=== PATIENT | male | born 1960 | race Caucasian/White ===

== ENCOUNTER 2017-03-05 15:17 | Emergency (ER) | payer MEDICARE ==
[2017-03-05 15:56] LABS: BASOPHILS 1.1 % (0-2); EOSINOPHILS 3.2 % (0-7); HEMATOCRIT 42.2 % (42.0-54.0); HEMOGLOBIN 14.6 g/dL (13.5-17.5); IMMATURE GRANULOCYTES 0.2 % (0-5); LYMPHOCYTES 22.5 % (15-50); MCH 31.7 pg (26.0-34.0); MCHC 34.6 g/dL (31.0-37.0); MCV 91.7 fL (80.0-100.0); MEAN PLATELET VOLUME 10.8 fL (7.4-10.4); MONOCYTES 19.3 % (2-11); NEUTROPHILS 53.7 % (40-80); PLATELET COUNT 167 10x3/uL (130-400); RDW 12.6 % (11.5-14.5); WBC 5.6 10x3/uL (4.8-10.8)
[2017-03-05 16:07] LABS: ALBUMIN 3.6 g/dL (3.4-5.0); ALKALINE PHOSPHATASE 107 U/L (46-116); ALT (SGPT) 169 U/L (10-68); BILIRUBIN - TOTAL 0.56 mg/dL (0.2-1.3); CALC OSMOLALITY 266 mosm/kg (275-300); CALCIUM 9.4 mg/dL (8.5-10.1); CARBON DIOXIDE 23.6 mmol/L (21.0-32.0); CHLORIDE - SERUM 97 mmol/L (98-107); GLUCOSE 208 mg/dL (74-106); POTASSIUM - SERUM 4.3 mmol/L (3.5-5.1); SODIUM 131 mmol/L (136-145); UREA NITROGEN 6 mg/dL (7-18); eGFR NON AFRICAN AMERICAN 82 mL/min (90-120)
== END 2017-03-05 16:58 | disposition home or self-care (01) ==
LOC: D.ER 15:17
PROVIDERS: Family Medicine
DX: J44.9 Chronic obstructive pulmonary disease, unspecified (principal); J20.9 Acute bronchitis, unspecified; I10 Essential (primary) hypertension; R00.0 Tachycardia, unspecified

== ENCOUNTER → 2017-05-25 15:31 | Outpatient (CLI) | payer MEDICARE ==
[2017-05-25 19:26] LABS: ALBUMIN 3.4 g/dL (3.4-5.0); BILIRUBIN - DIRECT 0.11 mg/dL (0.00-0.30); BILIRUBIN - INDIRECT 0.41 mg/dL (0.00-1.00); BILIRUBIN - TOTAL 0.52 mg/dL (0.2-1.3); PROTEIN - SERUM 7.1 g/dL (6.4-8.2)
[2017-06-02 09:19] LABS: HCVGENO - HEP C QUANT 8780000 IU/mL (()); HCVGENO - LOG 10 6.943 (())
== END | disposition home or self-care (01) ==
LOC: D.LABREF 15:31
PROVIDERS: Internal Medicine Gastroenterology
DX: Z12.11 Encounter for screening for malignant neoplasm of colon (principal)

== ENCOUNTER 2018-01-22 16:44 | Emergency (ER) | payer MEDICARE ==
[~2018-01-22] VITALS: Ht 172.7 cm; Wt 81.8 kg
[2018-01-22 16:47] VITALS: BP 147/100; Ht 172.7 cm; Wt 81.8 kg
[2018-01-22] MEDS ORDERED: EPCLUSA 400 MG1 EACH PO (16:49)
[2018-01-22] MEDS ORDERED: SEROQUEL XR400 M1 PO (16:56)
[2018-01-22] MEDS ORDERED: NEXIUM40 MG PO (16:57)
[2018-01-22] MEDS ORDERED: ALBUTEROL1.25 MG/3 INH (16:57)
[2018-01-22] MEDS ORDERED: IPRAT-ALBUT 0.5-3 ML UPD (16:57)
[2018-01-22 18:05] LABS: BASOPHILS 0.8 % (0-2); EOSINOPHILS 4.8 % (0-7); HEMATOCRIT 42.7 % (42.0-54.0); IMMATURE GRANULOCYTES 0.3 % (0-5); LYMPHOCYTES 33.3 % (15-50); MCH 31.8 pg (26.0-34.0); MCHC 35.1 g/dL (31.0-37.0); MCV 90.7 fL (80.0-100.0); MEAN PLATELET VOLUME 10.3 fL (7.4-10.4); NEUTROPHILS 49.8 % (40-80); PLATELET COUNT 185 10x3/uL (130-400); RBC 4.71 10x6/uL (4.20-6.10); RDW 12.4 % (11.5-14.5)
[2018-01-22 18:22] LABS: ALBUMIN 3.8 g/dL (3.4-5.0); ALKALINE PHOSPHATASE 79 U/L (46-116); ALT (SGPT) 86 U/L (10-68); AMYLASE - SERUM 54 U/L (25-115); BILIRUBIN - TOTAL 0.24 mg/dL (0.2-1.3); CALC OSMOLALITY 269 mosm/kg (275-300); CALCIUM 9.7 mg/dL (8.5-10.1); CARBON DIOXIDE 29.2 mmol/L (21.0-32.0); CHLORIDE - SERUM 99 mmol/L (98-107); CREATININE - SERUM 0.9 mg/dL (0.6-1.3); GLUCOSE 123 mg/dL (74-106); LIPASE 185 U/L (73-393); POTASSIUM - SERUM 4.3 mmol/L (3.5-5.1); PROTEIN - SERUM 8.3 g/dL (6.4-8.2); SODIUM 135 mmol/L (136-145); UREA NITROGEN 10 mg/dL (7-18); eGFR NON AFRICAN AMERICAN > 90 mL/min (90-120)
[2018-01-22] MEDS ORDERED: PEPCID AC20 MG PO (18:48)
[2018-01-22 18:51] LABS: APPEARANCE CLEAR (CLEAR); BILIRUBIN NEGATIVE (NEGATIVE); COLOR YELLOW (YELLOW); GLUCOSE NEGATIVE (NEGATIVE); KETONE NEGATIVE (NEGATIVE); NITRITE NEGATIVE (NEGATIVE); PROTEIN NEGATIVE (NEGATIVE); UROBILINOGEN NORMAL (NORMAL)
== END 2018-01-22 19:05 | disposition home or self-care (01) ==
LOC: D.ER 16:44
PROVIDERS: Family Medicine
DX: K21.9 Gastro-esophageal reflux disease without esophagitis (principal); B19.20 Unspecified viral hepatitis C without hepatic coma; F17.200 Nicotine dependence, unspecified, uncomplicated

== ENCOUNTER 2018-04-14 17:08 | Emergency (ER) | payer MEDICARE ==
[~2018-04-14] VITALS: Ht 172.7 cm; Wt 88.2 kg
[~2018-04-14 17:08] MED LIST: ALBUTEROL1.25 MG/3 INH; EPCLUSA 400 MG1 EACH PO; IPRAT-ALBUT 0.5-3 ML UPD; NEXIUM40 MG PO; PEPCID AC20 MG PO; SEROQUEL XR400 M1 PO
[2018-04-14 17:11] VITALS: Ht 172.7 cm; Wt 88.2 kg
[2018-04-14] MEDS ORDERED: AMOXICILLIN875 MG PO (17:13)
[2018-04-14 17:38] LABS: BASOPHILS 0.8 % (0-2); EOSINOPHILS 1.1 % (0-7); HEMATOCRIT 37.9 % (42.0-54.0); HEMOGLOBIN 13.6 g/dL (13.5-17.5); IMMATURE GRANULOCYTES 0.2 % (0-5); LYMPHOCYTES 23.8 % (15-50); MCH 31.3 pg (26.0-34.0); MCHC 35.9 g/dL (31.0-37.0); MCV 87.3 fL (80.0-100.0); MEAN PLATELET VOLUME 9.6 fL (7.4-10.4); MONOCYTES 17.4 % (2-11); NEUTROPHILS 56.7 % (40-80); PLATELET COUNT 190 10x3/uL (130-400); RBC 4.34 10x6/uL (4.20-6.10); RDW 12.1 % (11.5-14.5); WBC 8.7 10x3/uL (4.8-10.8)
[2018-04-14 17:48] LABS: APTT 28.6 SECONDS (22.8-39.4); INR 1.03 (0.85-1.17)
[2018-04-14 17:53] LABS: ALBUMIN 3.8 g/dL (3.4-5.0); ALKALINE PHOSPHATASE 66 U/L (46-116); ALT (SGPT) 48 U/L (10-68); CALC OSMOLALITY 252 mosm/kg (275-300); CALCIUM 8.7 mg/dL (8.5-10.1); CARBON DIOXIDE 20.3 mmol/L (21.0-32.0); CHLORIDE - SERUM 92 mmol/L (98-107); CREATININE - SERUM 0.9 mg/dL (0.6-1.3); GLUCOSE 128 mg/dL (74-106); POTASSIUM - SERUM 4.6 mmol/L (3.5-5.1); SODIUM 125 mmol/L (136-145); UREA NITROGEN 9 mg/dL (7-18); eGFR NON AFRICAN AMERICAN > 90 mL/min (90-120)
[2018-04-14 18:04] LABS: CREATINE KINASE 257 UL (21-232); PRO BNP 291 pg/mL (0-125)
[2018-04-14 18:15] LABS: TROPONIN-I < 0.017 ng/mL (0.000-0.060)
[2018-04-14] MEDS ORDERED: KEFLEX500 MG PO (19:00)
[2018-04-14 20:05] VITALS: BP 161/83
== END 2018-04-14 20:07 | disposition home or self-care (01) ==
LOC: D.ER 17:08
PROVIDERS: Family Medicine
DX: F41.9 Anxiety disorder, unspecified (principal); J06.9 Acute upper respiratory infection, unspecified; R05 Cough; J44.9 Chronic obstructive pulmonary disease, unspecified; F17.200 Nicotine dependence, unspecified, uncomplicated

== ENCOUNTER 2019-02-01 15:31 | Emergency (ER) | payer MEDICARE ==
[~2019-02-01] VITALS: Ht 172.7 cm; Wt 88.6 kg
[~2019-02-01 15:31] MED LIST changes: +AMOXICILLIN875 MG PO; +KEFLEX500 MG PO
[2019-02-01 15:39] VITALS: Ht 172.7 cm; Wt 88.6 kg
[2019-02-01 16:49] LABS: BASOPHILS 0.9 % (0-2); EOSINOPHILS 5.1 % (0-7); HEMATOCRIT 39.2 % (42.0-54.0); HEMOGLOBIN 13.3 g/dL (13.5-17.5); IMMATURE GRANULOCYTES 0.2 % (0-5); LYMPHOCYTES 26.2 % (15-50); MCH 30.9 pg (26.0-34.0); MCHC 33.9 g/dL (31.0-37.0); MCV 91.2 fL (80.0-100.0); MEAN PLATELET VOLUME 9.8 fL (7.4-10.4); NEUTROPHILS 56.6 % (40-80); RDW 12.5 % (11.5-14.5); WBC 9.6 10x3/uL (4.8-10.8)
[2019-02-01 16:51] LABS: PLATELET COUNT 250 10x3/uL (130-400)
[2019-02-01 16:54] LABS: APPEARANCE CLEAR (CLEAR); BILIRUBIN NEGATIVE (NEGATIVE); COLOR YELLOW (YELLOW); GLUCOSE NEGATIVE (NEGATIVE); KETONE NEGATIVE (NEGATIVE); NITRITE NEGATIVE (NEGATIVE); PROTEIN NEGATIVE (NEGATIVE); SPECIFIC GRAVITY 1.015 (1.005-1.020); UROBILINOGEN NORMAL (NORMAL)
[2019-02-01 17:00] LABS: CALC OSMOLALITY 268 mosm/kg (275-300); CALCIUM 9.3 mg/dL (8.5-10.1); CARBON DIOXIDE 23.4 mmol/L (21.0-32.0); CHLORIDE - SERUM 100 mmol/L (98-107); GLUCOSE 108 mg/dL (74-106); POTASSIUM - SERUM 4.8 mmol/L (3.5-5.1); SODIUM 135 mmol/L (136-145); UREA NITROGEN 7 mg/dL (7-18); eGFR NON AFRICAN AMERICAN 81 mL/min (90-120)
[2019-02-01 17:10] LABS: ALBUMIN 4.1 g/dL (3.4-5.0); ALKALINE PHOSPHATASE 95 U/L (46-116); ALT (SGPT) 45 U/L (10-68); AMYLASE - SERUM 45 U/L (25-115); BILIRUBIN - TOTAL 0.28 mg/dL (0.2-1.3); LIPASE 148 U/L (73-393); PROTEIN - SERUM 8.2 g/dL (6.4-8.2); TROPONIN-I < 0.017 ng/mL (0.000-0.060)
[2019-02-01] MEDS ORDERED: ZOFRAN ODT4 MG/UDTAB PO (18:54)
[2019-02-01] MEDS ORDERED: DOXYCYCLINE HY100 M2 PO (18:54)
[2019-02-01 18:58] VITALS: BP 135/74
== END 2019-02-01 18:59 ==
LOC: D.ER 15:31
PROVIDERS: Family Medicine
DX: R10.9 Unspecified abdominal pain (principal); Z20.89 Contact with and (suspected) exposure to other communicable diseases; J44.9 Chronic obstructive pulmonary disease, unspecified; Z72.0 Tobacco use; I25.10 Atherosclerotic heart disease of native coronary artery without angina pectoris; R51 Headache; R11.0 Nausea